=== PATIENT | male | born 1945 | race Asian ===

== ENCOUNTER 2024-07-09 14:07 | Inpatient (IN) | payer OTHER, SELFPAY ==
[2024-07-09] VITALS (8 sets, daily range): BP systolic 110–160; BP diastolic 67–85; PULSE 86–113; RESP 16–96; TEMP 36.7–38.4; O2SAT 94–97; BMI 20.9
--- NOTE | 2024-07-09 14:20 | XR_ITS ---
Examination: AP chest single view Technique one AP portable upright chest single view Exam date: July 09, 2024 1453 hours INDICATIONS: Sepsis protocol. FINDINGS: Significant pneumonia right base Mild prominence left ventricle Ectatic thoracic aorta Moderate osteopenia IMPRESSION: Significant pneumonia right base
--- NOTE | 2024-07-09 14:20 | EKG_ITS ---
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
--- NOTE | 2024-07-09 14:27 | PD.EDADULT ---
ED General RME/HPI General Chief complaint: Flu Like Symptoms Stated complaint: WEAKNESS Time Seen by Provider: 07/09/24 14:19 Arrival date/time: 07/09/24 14:07 CC: Altered mental status HPI patient presents to the ER via EMS with PD after found driving erratically through traffic. The patient states that he has had the shakes feeling cold with bodyaches. Patient states no other family members are ill. Nursing reports tachycardic and an oral temperature of 100.6. Patient is awake with loud verbal stimulation answering all questions appropriately. Patient has a history of diabetes hypertension A-fib is on blood thinners. Related Data Home Medications ?Medication ?Instructions ?Recorded ?Confirmed allopurinol 100 mg tablet 100 mg PO BID 07/09/24 07/09/24 atorvastatin 10 mg tablet 10 mg PO QDAY 07/09/24 07/09/24 empagliflozin 25 mg tablet 25 mg PO .COMPLEX 07/09/24 07/09/24 (Jardiance) glipizide 5 mg tablet 5 mg PO .COMPLEX 07/09/24 07/09/24 hydrochlorothiazide PO 07/09/24 levothyroxine 50 mcg tablet 50 mcg PO QDAY 07/09/24 07/09/24 losartan 50 mg tablet 50 mg PO QDAY 07/09/24 07/09/24 metoprolol succinate PO .Qday 07/09/24 omeprazole 20 mg capsule,delayed 20 mg PO QDAY 07/09/24 07/09/24 release tamsulosin 0.4 mg capsule 0.4 mg PO QDAY 07/09/24 07/09/24 warfarin 2.5 mg tablet 2.5 mg PO .COMPLEX 07/09/24 07/09/24 Previous Rx's ?Medication ?Instructions ?Recorded cefdinir 300 mg capsule 300 mg PO BID 3 days #6 caps 07/11/24 Allergies Allergy/AdvReac Type Severity Reaction Status Date / Time No Known Allergies Allergy Verified 07/09/24 15:47 Review of Systems Review of Systems Narrative Review of Systems: GEN: + fever, + chills, no weight loss EYES: No discharge, no visual changes, no pain HEENT: No ear pain, no congestion, no sore throat PULM: No shortness of breath, no cough, no congestion CV: No chest pain, no dyspnea on exertion, no palpitations GI: No nausea, no vomiting, no diarrhea, no pain, no constipation : No frequency, no urgency, no dysuria MUSC/SKEL: No joint pain, no back pain SKIN: No rash PSYCH: No hallucinations, no depression HEME/LYMPH: No easy bleeding or bruising tendencies NEURO: No weakness, no headache ED Exam Narrative Physical exam: [General: Thin but not emaciated in moderate discomfort but not in any acute distress Head normocephalic HEENT: Eyes pupils are PERRLA EOMs are intact mouth pink dry membranes uvula is midline swallow symmetrical. All other subsystems of HEENT are within acceptable limits Neck is supple nontender no JVD no edema Chest equal chest rise nontender to palpation Respiratory: Clear to auscultation no wheezes crackles or rubs CV: Rate rhythm is regular, tachycardic, no murmurs rubs or clicks Abdomen is flat, soft nontender no masses positive bowel sounds all 4 quadrants Back: No CVA tenderness no spinous process tenderness from cervical spine thoracic and lumbar spine Skin: Intact no petechiae rash induration ulceration or crepitus Extremities: Moving all extremity against resistance cap refill less than 2 seconds neurosensory intact Neuro: Awake alert oriented x2, person and place, Glascow coma 15 no focal deficits] Course Quality Measures none Orders Category Date Time Status Admit to Inpatient Status Routine Admission 07/09/24 17:46 Active Patient Condition Routine Admission 07/09/24 17:46 Ordered Bedside Blood Glucose ACHS Care 07/09/24 17:51 Completed Bedside COVID-19 Antigen Test NOW Care 07/09/24 17:56 Completed Bedside Influenza A&B Antigen Test NOW Care 07/09/24 14:20 Completed Windows Technical Specialist STAT Care 07/09/24 14:20 Completed Continuous Pulse Oximetry STAT Care 07/09/24 14:20 Completed EKG (ED ONLY) *Do not use* NOW Care 07/09/24 14:20 Completed In and Out Catheter X1PRN Care 07/09/24 14:20 Completed Insert IV NOW Care 07/09/24 14:20 Completed NPO STAT Care 07/09/24 14:20 Completed Notify provider NEEDED Care 07/09/24 17:46 Completed Saline [Insert IV] NOW Care 07/09/24 14:20 Completed Strict Intake and Output Routine Care 07/09/24 14:20 Ordered Diet Cardiac Diet 07/09/24 Dinner Active EKG (ED Only) Stat Exams 07/09/24 14:20 Draft XR chest 1V SEPSIS PROTOCOL Stat Exams 07/09/24 14:20 Completed B-Type Natriuretic Peptide Stat Lab 07/09/24 14:27 Completed Blood Culture (Lab) Stat Lab 07/09/24 14:27 Results CBC AM DRAW Lab 07/10/24 05:05 Completed CBC AM DRAW Lab 07/11/24 05:15 Completed CBC Stat Lab 07/09/24 14:27 Completed Comprehensive Metabolic Panel AM DRAW Lab 07/10/24 05:05 Completed Comprehensive Metabolic Panel AM DRAW Lab 07/11/24 05:15 Completed Comprehensive Metabolic Panel Stat Lab 07/09/24 14:27 Completed Glycohemoglobin w (eAG) AM DRAW Lab 07/10/24 05:05 Completed LDH (Lactate Dehydrogenase) Stat Lab 07/09/24 14:27 Completed Lactate (Lactic Acid) Stat Lab 07/09/24 14:27 Completed Lactic Acid, 3 HR Stat Lab 07/09/24 11:56 Completed Lipase Stat Lab 07/09/24 14:27 Completed Lipid Panel AM DRAW Lab 07/10/24 05:05 Completed MRSA Nasal Screen Stat Lab 07/09/24 21:30 Completed Magnesium AM DRAW Lab 07/10/24 05:05 Completed Magnesium AM DRAW Lab 07/11/24 05:15 Completed Magnesium Stat Lab 07/09/24 14:27 Completed Partial Thromboplastin Time AM DRAW Lab 07/10/24 05:05 Completed Partial Thromboplastin Time AM DRAW Lab 07/11/24 05:15 Completed Partial Thromboplastin Time Stat Lab 07/09/24 14:27 Completed Phosphorous AM DRAW Lab 07/10/24 05:05 Completed Phosphorous AM DRAW Lab 07/11/24 05:15 Completed Phosphorous Stat Lab 07/09/24 14:27 Completed Procalcitonin Stat Lab 07/09/24 14:27 Completed Prothrombin Time with INR AM DRAW Lab 07/10/24 05:05 Completed Prothrombin Time with INR AM DRAW Lab 07/11/24 05:15 Completed Prothrombin Time with INR Stat Lab 07/09/24 14:27 Completed RSV [Respiratory Syncytial Virus Ag] Stat Lab 07/09/24 21:10 Completed Sputum Culture and Gram Stain Routine Lab 07/09/24 22:15 Results Thyroid Stimulating Hormone AM DRAW Lab 07/10/24 05:05 Completed Troponin I Stat Lab 07/09/24 14:27 Completed Urinalysis Stat Lab 07/09/24 14:53 Completed Urine Culture Stat Lab 07/09/24 14:53 Completed Acetaminophen Ivpb [Ofirmev Inj] Med 07/09/24 14:32 Discontinued 1,000 mg in 100 ml IV NOW Acetaminophen Tab [Tylenol Tab] Med 07/09/24 17:51 Discontinued 650 mg PO Q6H PRN Azithromycin Inj [Zithromax Inj] 500 mg Med 07/10/24 21:00 Discontinued Sodium Chloride 0.9% 250 ml [Ns] 250 ml IV QDAY@2100 Dextrose 50% Syr [D50w Syringe Abboject] Med 07/09/24 17:51 Discontinued 25 ml IV Q15MIN PRN Dextrose 50% Syr [D50w Syringe Abboject] Med 07/09/24 17:51 Discontinued 50 ml IV Q15MIN PRN Glucagon Inj Med 07/09/24 17:51 Discontinued 1 mg IM Q15MIN PRN Heparin Inj Med 07/09/24 21:00 Discontinued 5,000 unit SC BID INSULIN LISPRO (AdmeLOG) [HumaLOG] Med 07/09/24 21:00 Discontinued See Protocol SC ACHS Ondansetron Inj [Zofran Inj] Med 07/09/24 17:51 Discontinued 4 mg IV Q6H PRN Pantoprazole [Protonix] Med 07/10/24 09:00 Discontinued 40 mg PO QDAY Ringers Lactated 500 ml [Lactated Ringers] 500 ml Med 07/09/24 19:00 Discontinued IV 75 mls/hr Sodium Chloride 0.9% 1000 ml [Ns] 1,000 ml Med 07/09/24 14:20 Discontinued IV 999 mls/hr Sodium Chloride Rt Mague 10% [NS Rt Mague 10%] Med 07/09/24 17:51 Discontinued 5 ml INH X1 ONE cefTRIAXone/D5w 1gm IV premix [Rocephin/D5w 1gm IV Med 07/10/24 18:00 Discontinued premix] 1 gm in 50 ml IV QDAY Code Status Routine Oth 07/09/24 17:46 Completed Oxygen Delivery NOW RT 07/09/24 14:20 Completed Sputum Induction PRN RT 07/09/24 18:00 Ordered Vital Signs Vital signs: Vital Signs Temperature 100.6 F H 07/09/24 14:08 Pulse Rate 106 H 07/09/24 14:08 Respiratory Rate 20 07/09/24 14:08 Blood Pressure 160/67 H 07/09/24 14:08 Pulse Oximetry (%) 95 07/09/24 14:08 Oxygen Delivery Method Room Air 07/09/24 14:08 [facility] Patient data External records reviewed:: [facility] previous records and EMS form Clinical information provided by:: patient and EMS Social determinants that could affect healthcare access:: none Patient has the following chronic illnesses:: None How is presenting disease/condition affected by chronic disease/condition?: uneffected by Evaluation data The following diagnostics were reviewed and interpreted by me:: lab results, radiology exam(s) and EKG tracing(s) Lab and/or radiology exams considered but not ordered:: EKG performed at 1432 shows a ventricular rate of 9 6 QRS of 8 7 QTc of 391 this is A-fib. CBC shows leukocytosis of 30,300 H&H of 11 and 31 respectively. Platelet count at 121. No bandemia PT 28.9 INR 2.8 PTT 53.3 CMP shows sodium 133 potassium 4.2 CO2 of 19.4 chloride is within acceptable limits BUN is 60 creatinine is 2.5 glucose at 185 Lactic acid 2.1 Pro-Eber at 33.36 Lipase at 59. BNP of 289 Chest x-ray shows a significant right base pneumonia. Influenza is negative. Interpretation Summary: While resting oxygen saturations are 90% on room air the patient is feeling more comfortable after IV Tylenol. However patient is septic, with a pneumonia. Patient also noted to have MINAL, as we have no old laboratory results and not sure if this is chronic or acute on chronic. This will need to be addressed as well. This time his warrants admission to the hospital for further medical management. Medications Medications considered but not ordered:: None Medication administrations:: Medication Administration History Discontinued Medications Acetaminophen (Acetaminophen 325 Mg Tablet) 650 mg PO Q6H PRN PRN Reason: PAIN OR FEVER > 100.4 Stop: 08/08/24 17:50 Last Admin: 07/10/24 05:26 Dose: 650 mg Documented By: AZUL Atorvastatin Calcium (Atorvastatin Calcium 10 Mg Tablet) 10 mg PO QDAY ASIA Stop: 08/09/24 08:59 Last Admin: 07/11/24 09:05 Dose: 10 mg Documented By: Admin: 07/10/24 08:35 Dose: 10 mg Documented By: OK Dextrose (Dextrose 50%-Water Inj 50 Ml Syringe) 25 ml IV Q15MIN PRN PRN Reason: BG 50-70 responsive npo pt Stop: 08/08/24 17:50 Dextrose (Dextrose 50%-Water Inj 50 Ml Syringe) 50 ml IV Q15MIN PRN PRN Reason: BG <50 OR BG <70 & pt unresponsive Stop: 08/08/24 17:50 Glucagon (Glucagon Inj 1 Mg Vial) 1 mg IM Q15MIN PRN PRN Reason: BG <70, and no IV access Heparin Sodium (Porcine) (Heparin Sod Inj 5000 Unit/Ml Vial) 5,000 unit SC BID ASIA Stop: 07/23/24 20:59 Last Admin: 07/09/24 22:03 Dose: Not Given Documented By: HECTOR Non-Admin Reason: HOLD TONIGHT PER MD Sodium Chloride (Ns) 1,000 mls @ 999 mls/hr IV .Q1H1M ONE Stop: 07/09/24 15:20 Last Admin: 07/09/24 15:00 Dose: 999 mls/hr Documented By: CARMELA Acetaminophen (Ofirmev Inj) 1,000 mg in 100 mls @ 250 mls/hr IV NOW ONE Stop: 07/09/24 14:55 Last Infusion: 07/09/24 16:47 Dose: Infused Documented By: HECTOR(2) Admin: 07/09/24 16:23 Dose: 250 mls/hr Documented By: MLXimena(2) Lactated Ringer's (Lactated Ringers) 500 mls @ 75 mls/hr IV .Q6H40M ONE Stop: 07/10/24 01:39 Last Admin: 07/09/24 20:57 Dose: 75 mls/hr Documented By: LB Comments: 500 ml bag not available Ceftriaxone Sodium/Dextrose (Rocephin/D5w 1gm Iv Premix) 1 gm in 50 mls @ 100 mls/hr IV QDAY ASIA Stop: 07/17/24 17:59 Azithromycin 500 mg/ Sodium (Chloride) 250 mls @ 250 mls/hr IV QDAY@2100 ASIA Stop: 07/16/24 17:49 Last Admin: 07/10/24 20:34 Dose: 250 mls/hr Documented By: LORENZO Azithromycin 500 mg/ Sodium (Chloride) 250 mls @ 250 mls/hr IV X1 ONE Stop: 07/09/24 19:14 Last Infusion: 07/09/24 20:57 Dose: Infused Documented By: Admin: 07/09/24 19:57 Dose: 250 mls/hr Documented By: AYE Ceftriaxone Sodium/Dextrose (Rocephin/D5w 1gm Iv Premix) 1 gm in 50 mls @ 100 mls/hr IV QDAY ASIA Stop: 07/16/24 18:14 Last Admin: 07/11/24 09:08 Dose: 100 mls/hr Documented By: Infusion: 07/10/24 09:05 Dose: Infused Documented By: Admin: 07/10/24 08:35 Dose: 100 mls/hr Documented By: Infusion: 07/09/24 22:46 Dose: Infused Documented By: Admin: 07/09/24 22:08 Dose: 100 mls/hr Documented By: HECTOR Insulin Human Lispro (Insulin Lispro (Admelog) 1 Unit/0.01 Ml Unit) 0 unit SC [facility]; Protocol Stop: 08/08/24 20:59 Last Admin: 07/10/24 07:20 Dose: Not Given Documented By: OK Non-Admin Reason: Per Protocol Admin: 07/09/24 21:14 Dose: Not Given Documented By: MAYLIN Non-Admin Reason: Per Protocol Insulin Human Lispro (Insulin Lispro (Admelog) 1 Unit/0.01 Ml Unit) 0 unit SC AC [facility]; Protocol Stop: 08/09/24 07:29 Last Admin: 07/11/24 11:28 Dose: 1 unit Documented By: IVANIA Co-signed By: ISMAEL Admin: 07/11/24 07:21 Dose: Not Given Documented By: GD Non-Admin Reason: Per Protocol Comments: Blood sugar 82. Admin: 07/10/24 16:53 Dose: 1 unit Documented By: OK Co-signed By: ALFRED Admin: 07/10/24 11:25 Dose: Not Given Documented By: OK Non-Admin Reason: Per Protocol Admin: 07/10/24 07:35 Dose: Not Given Documented By: OK Non-Admin Reason: Per Protocol Levothyroxine Sodium (Levothyroxine Sodium 25 Mcg Tablet) 50 mcg PO ACBR [facility] Stop: 08/09/24 08:59 Last Admin: 07/11/24 05:16 Dose: 50 mcg Documented By: Admin: 07/10/24 08:34 Dose: 50 mcg Documented By: OK Metoprolol Succinate (Metoprolol Succinate Xl 25 Mg Tabcr) 25 mg PO QDAY [facility] Stop: 08/09/24 15:44 Last Admin: 07/11/24 09:05 Dose: 25 mg Documented By: Admin: 07/10/24 15:57 Dose: 25 mg Documented By: OK Ondansetron HCl (Ondansetron Inj 2 Mg/Ml Inj 2 Ml) 4 mg IV Q6H PRN; Protocol PRN Reason: NAUSEA OR VOMITING Stop: 08/08/24 17:50 Pantoprazole Sodium (Pantoprazole 40 Mg Tablet) 40 mg PO QDAY [facility] Stop: 08/09/24 08:59 Last Admin: 07/11/24 09:05 Dose: 40 mg Documented By: Admin: 07/10/24 08:34 Dose: 40 mg Documented By: OK Potassium Chloride (Potassium Chloride 20 Meq Tabcr) 40 meq PO X1 ONE Stop: 07/11/24 07:53 Last Admin: 07/11/24 11:21 Dose: 40 meq Documented By: BM Sodium Chloride (Sodium Chloride Rt 10% 15 Ml Nebu) 5 ml INH X1 ONE Stop: 07/09/24 17:52 Tamsulosin HCl (Tamsulosin Hcl 0.4 Mg Capsule) 0.4 mg PO QDAY [facility] Stop: 08/09/24 13:14 Last Admin: 07/11/24 09:05 Dose: 0.4 mg Documented By: Admin: 07/10/24 14:37 Dose: 0.4 mg Documented By: OK None Consultations Consultation(s) initiated? (list below): No Diagnosis Differential Diagnosis ED Complaint MDM: Pneumonia sepsis MINAL Most likely diagnosis given after review of the tests above:: Pneumonia sepsis MINAL Admission Indicated Admission indicated?: indicated Explain why admission is indicated or not indicated:: Requires further medical management Admission Request Was there a request for admission?: No Disposition Plan Disposition Plan: Admit Medical Decision Making Differential Diagnosis Differential Diagnosis: Pneumonia sepsis MINAL Lab Data 07/11/24 05:15 07/11/24 05:15 Labs: Lab Results 07/09/24 07/09/24 07/09/24 Range/Units 11:56 14:27 14:53 WBC 30.3 H (3.8-10.6) Thou/mm3 RBC 3.30 L (4.50-5.90) Miln/mm3 Hgb 11.4 L (13.5-16.0) g/dL Hct 31.5 L (41.0-53.0) % MCV 96 (80-100) fL MCH 34.5 (25.0-35.0) pg MCHC 36.2 (31.0-37.0) g/dl RDW Std Deviation 51.4 H (35.1-43.9) fL Plt Count 121 L (140-440) Thou/mm3 Neut % (Auto) 93 H (37-80) % Lymph % (Auto) 1 L (10-50) % Dukes % (Auto) 2 (0-12) % Eos % (Auto) 0 (0-10) % Baso % (Auto) 0 (0-2.5) % Neut # (Auto) 28.2 H (1.8-7.7) Thou/mm3 Lymph # (Auto) 0.4 L (1.0-4.8) Thou/mm3 Dukes # (Auto) 0.5 (0.0-0.8) Thou/mm3 Eos # (Auto) 0.0 (0.0-0.5) Thou/mm3 Baso # (Auto) 0.0 (0.0-0.2) Thou/mm3 Immature Gran # (Auto) 1.11 H (0.00-0.00) Thou/mm3 Absolute Nucleated RBC 0.00 (0.00-0.00) Thou/mm3 Immature Gran % 4 H (0-0) % Nucleated RBC % 0 (0) /100 WBC PT 28.9 H (9.0-12.2) Seconds INR 2.8 H (0.9-1.3) APTT 53.5 H (22.0-36.0) Seconds Sodium 131 L (136-145) mMol/L Potassium 4.2 (3.4-5.1) mMol/L Chloride 101 (98-107) mMol/L Carbon Dioxide 19.4 L (20.0-31.0) mMol/L Anion Gap 11 (7-16) BUN 60 H (9-23) mg/dL Creatinine 2.5 H (0.6-1.3) mg/dL Estim Creat Clear Calc 19.1 L (>60) mL/min eGFR 26 L (60 - ) See Note BUN/Creatinine Ratio 24 H (12-20) Ratio Glucose 185 H (74-106) mg/dL Calculated Osmolality 284 (275-295) Lactic Acid 0.9 2.1 H (0.4-2.0) mMol/L Calcium 8.7 (8.3-10.6) mg/dL Corrected Calcium 8.7 (8.5-10.1) mg/dL Phosphorus 3.2 (2.4-5.1) mg/dL Magnesium 2.3 (1.6-2.6) mg/dL Total Bilirubin 1.9 H (0.3-1.2) mg/dL AST 39 H (0-34) U/L ALT 16 (10-49) U/L Alkaline Phosphatase 81 (46-116) U/L Lactate Dehydrogenase 257 H (120-246) U/L Troponin I 0.037 (0.0-0.045) ng/mL B-Natriuretic Peptide 289 H (0-100) pg/mL Total Protein 7.3 (5.7-8.2) gm/dL Albumin 4.0 (3.4-4.8) gm/dL Globulin 3.3 (2.3-3.5) gm/dL Albumin/Globulin Ratio 1.2 (1.2-2.2) Lipase 59 H (12-53) U/L Procalcitonin 33.36 H (0.0-0.49) ng/ml Ur Collection Type Clean Catch Urine Color Lt-Yellow (Lt Yel-Yel) Urine Clarity Clear (Clear/Hazy) Urine pH 6.5 (5.0-7.0) Ur Specific [place] 1.014 (1.001-1.035) Urine Protein 1+ A (Neg - Trace) Urine Glucose (UA) 4+ A (Negative) Urine Ketones Negative (Negative) Urine Blood 1+ A (Negative) Urine Nitrite Negative (Negative) Urine Bilirubin Negative (Negative) Urine Urobilinogen (Auto) Negative (0.0-1.0) mg/dL Ur Leukocyte Esterase Negative (Negative) Urine RBC 6 H (0-3) /hpf Urine WBC < 1 (0-5) /hpf Ur Squamous Epith Cells 0 (0-5) /hpf Urine Bacteria None (None) Discharge Plan Plan Patient Disposition: Admit Acute Care w/in Hospital Patient condition on transfer: Stable Problem List Clinical Impression: Sepsis, Pneumonia, MINAL (acute kidney injury) PA/PUBLIC HEALTH ENGINEER Supervising Physician PA/PUBLIC HEALTH ENGINEER Supervising Physician: Collin Saenz ENP
[2024-07-09 14:37] LABS: Lactate (Lactic Acid) 2.1 mMol/L (0.4-2.0)
[2024-07-09 14:39] LABS: Basophils % (Auto) 0 % (0-2.5); Eosinophils % (Auto) 0 % (0-10); Hematocrit 31.5 % (41.0-53.0); Hemoglobin 11.4 g/dL (13.5-16.0); Immature Granulocytes % (Auto) 4 % (0-0); Immature Granulocytes Auto 1.11 Thou/mm3 (0.00-0.00); Lymphocytes # (Auto) 0.4 Thou/mm3 (1.0-4.8); Lymphocytes % (Auto) 1 % (10-50); Mean Corpuscular HGB Conc 36.2 g/dl (31.0-37.0); Mean Corpuscular Hemoglobin 34.5 pg (25.0-35.0); Mean Corpuscular Volume 96 fL (80-100); Monocytes # (Auto) 0.5 Thou/mm3 (0.0-0.8); Monocytes % (Auto) 2 % (0-12); Neutrophils # (Auto) 28.2 Thou/mm3 (1.8-7.7); Neutrophils % (Auto) 93 % (37-80); Nucleated Red Blood Cell % 0 /100 WBC (0); Platelet Count 121 Thou/mm3 (140-440); RDW Standard Deviation 51.4 fL (35.1-43.9); White Blood Count 30.3 Thou/mm3 (3.8-10.6)
[2024-07-09] MEDS: SODIUM CHLORIDE 0.9% 1000 ML 1,000 ML 999 ML IV (15:00)
[2024-07-09 15:03] LABS: B-Type Natriuretic Peptide 289 pg/mL (0-100)
[2024-07-09 15:07] LABS: INR 2.8 (0.9-1.3); Partial Thromboplastin Time 53.5 Seconds (22.0-36.0); Prothrombin Time 28.9 Seconds (9.0-12.2)
[2024-07-09 15:13] LABS: Alanine Aminotransferase 16 U/L (10-49); Albumin/Globulin Ratio 1.2 (1.2-2.2); Alkaline Phosphatase 81 U/L (46-116); Anion Gap 11 (7-16); Aspartate Amino Transferase 39 U/L (0-34); BUN/Creatinine Ratio 24 Ratio (12-20); Bilirubin,Total 1.9 mg/dL (0.3-1.2); Blood Urea Nitrogen 60 mg/dL (9-23); Calcium 8.7 mg/dL (8.3-10.6); Calcium (Corrected) 8.7 mg/dL (8.5-10.1); Carbon Dioxide 19.4 mMol/L (20.0-31.0); Chloride 101 mMol/L (98-107); Creatinine (Component) 2.5 mg/dL (0.6-1.3); Estimated Creatinine Clearance 19.1 mL/min (>60); Globulin 3.3 gm/dL (2.3-3.5); Glucose 185 mg/dL (74-106); LDH (Lactate Dehydrogenase) 257 U/L (120-246); Lipase 59 U/L (12-53); Magnesium 2.3 mg/dL (1.6-2.6); Osmolality,Calculated 284 (275-295); Phosphorous 3.2 mg/dL (2.4-5.1); Potassium 4.2 mMol/L (3.4-5.1); Procalcitonin 33.36 ng/ml (0.0-0.49); Sodium 131 mMol/L (136-145); Total Protein 7.3 gm/dL (5.7-8.2); Troponin I 0.037 ng/mL (0.0-0.045); eGFR 26 See Note
[2024-07-09 15:26] LABS: Collection Type, Urine Clean Catch; Squamous Epithelial Cell,Urine 0 /hpf (0-5)
[2024-07-09 15:55] LABS: Bilirubin,Urine Negative (Negative); Blood,Urine 1+ (Negative); Clarity,Urine Clear (Clear/Hazy); Color,Urine Lt-Yellow (Lt Yel-Yel); Glucose, Urine 4+ (Negative); Ketones,Urine Negative (Negative); Leukocyte Esterase,Urine Negative (Negative); Nitrite,Urine Negative (Negative); PH,Urine 6.5 (5.0-7.0); Protein,Urine 1+ (Neg - Trace); RBC,Urine 6 /hpf (0-3); Specific Gravity,Urine 1.014 (1.001-1.035); Urobilinogen,Urine Negative mg/dL (0.0-1.0); WBC,Urine < 1 /hpf (0-5)
[2024-07-09] MEDS: ACETAMINOPHEN IVPB 1,000 MG/100 ML VIAL 250 MG IV (16:23)
--- NOTE | 2024-07-09 17:30 | ESHP_ITS ---
Addendum History & Physical Addendum Date of report being addended: 07/09/24 Narrative: Attending's attestation: I reviewed labs, imaging, EKG, home medications and prior available records. Face to face evaluation was performed by me. I have personally examined the patient and discussed assessment and plan with the IM team. I reviewed the resident note and agree with the plan with exceptions as below. 79-year-old male with unknown past medical history who presented with fevers, ch ills, and bodyaches. He was found to have sepsis picture likely secondary to left lower lobe pneumonia. Sepsis secondary to left lower lobe pneumonia Acute febrile illness Thrombocytopenia MINAL versus CKD stage IV Hyperglycemia, possible history of diabetes mellitus Atrial fibrillation with controlled ventricular rhythm Elevated INR Start IV ceftriaxone/azithromycin Follow-up blood cultures Tylenol as needed for fevers Trend WBC Give IV fluids. Monitor kidney function. Avoid nephrotoxins. Renally dosed medications Monitor platelet level and monitor for bleeding Obtain baseline echocardiogram
[2024-07-09 17:36] LABS: Reflex Lactate? Y
[2024-07-09 18:01] LABS: Lactic Acid, 3 HR 0.9 mMol/L (0.4-2.0)
--- NOTE | 2024-07-09 18:02 | PD.RESHP ---
Documentation for date of: 07/09/24 HPI History of Present Illness History of present illness: Florentino Can is a 79-year-old male with a past medical history of type 2 diabetes mellitus, hypertension, and atrial fibrillation (patient states he is on warfarin) who presents to ED on 07/09 after being brought in by [place] [employer] for erratic driving, and son present at bedside to help provide additional history. Son states that patient went out to buy something from convenience store and on the way back home onlookers called police for patient's driving. Police then called EMS and son states that patient's blood pressure was high. For the past 2 to 3 days patient endorses having a cough with associated fever, chills, and sweats but no sore throat or shortness of breath. Also denies chest discomfort, dysuria, change in bowel habits, or abdominal pain. No sick contacts but patient did drive from [place] to visit his son. In ED, BP 160/67, HR 106, temp 100.6 ?F, O2 95% on RA. WBC 30, Hgb 11.4, PLT 121. INR 2.8, PTT 53. Na 131, HCO3 19, BUN 60, Cr 2.5, glucose 185, lactate 2.1, T. bili 1.9, AST 39, ALT 16, BNP 289, trop negative, Pro-Eber 33. UA 4+ glucose, 1+ protein, 1+ blood, 6 RBC. CXR showed right base pneumonia. EKG showed a-fib. Blood and urine cultures sent. Given 1 L NS bolus and tylenol. Admitted for management of community acquired pneumonia. PMHx: T2DM, HTN, a-fib reportedly on warfarin Medications: patient does not know all medications/dosages, son to bring medication list from home as soon as possible SHx: denies current tobacco use, alcohol consumption, or illicit drug use; visiting son from [place] PSHx: none Review of Systems Review of Systems Systems Reviewed: All systems reviewed, normal except as documented Exam Vital Signs Temp Pulse Resp BP Pulse Ox O2 Del Method 100.0 F 113 H 27 H 145/85 H 95 Room Air 07/09/24 16:20 07/09/24 16:20 07/09/24 16:20 07/09/24 16:20 07/09/24 16:20 07/09/24 16:20 Narrative Exam General: AOx3, no acute distress, able to speak full sentences HEENT: NC/AT, mucous membranes moist, bilateral sclera anicteric Cardiovascular: irregular rate and rhythm, S1/S2 present, no murmurs appreciated Pulmonary: clear to auscultation bilaterally, no rales/rhonchi/wheezes Abdominal: soft, non-tender, non-distended, no rebound/guarding, normal bowel sounds present Musculoskeletal: normal ROM, no peripheral edema Skin: warm and dry, intact, no rashes Neuro: CN II-XII intact, no focal deficits Results: Labs 07/11/24 05:15 07/11/24 05:15 Labs: Short CBC 07/09/24 Range/Units 14:27 WBC 30.3 H (3.8-10.6) Thou/mm3 Hgb 11.4 L (13.5-16.0) g/dL Hct 31.5 L (41.0-53.0) % Plt Count 121 L (140-440) Thou/mm3 BMP 07/09/24 14:27 Sodium 131 L Potassium 4.2 Chloride 101 Carbon Dioxide 19.4 L BUN 60 H Creatinine 2.5 H Glucose 185 H Calcium 8.7 Cardiac Enzymes 07/09/24 Range/Units 14:27 Troponin I 0.037 (0.0-0.045) ng/mL Liver Function 07/09/24 Range/Units 14:27 Total Bilirubin 1.9 H (0.3-1.2) mg/dL AST 39 H (0-34) U/L ALT 16 (10-49) U/L Alkaline Phosphatase 81 (46-116) U/L Albumin 4.0 (3.4-4.8) gm/dL Urine 07/09/24 Range/Units 14:53 Urine Color Lt-Yellow (Lt Yel-Yel) Urine Clarity Clear (Clear/Hazy) Urine pH 6.5 (5.0-7.0) Ur Specific [place] 1.014 (1.001-1.035) Urine Protein 1+ A (Neg - Trace) Urine Glucose (UA) 4+ A (Negative) Quality Measures Quality Measures VTE prophylaxis Advance care planning discussed with:: patient and child Medications Home Medications and Allergies Home Medications ?Medication ?Instructions ?Recorded ?Confirmed ?Type allopurinol 100 mg tablet 100 mg PO BID 07/09/24 07/09/24 History atorvastatin 10 mg tablet 10 mg PO QDAY 07/09/24 07/09/24 History empagliflozin 25 mg tablet 25 mg PO .COMPLEX 07/09/24 07/09/24 History (Jardiance) glipizide 5 mg tablet 5 mg PO .COMPLEX 07/09/24 07/09/24 History hydrochlorothiazide PO 07/09/24 History levothyroxine 50 mcg tablet 50 mcg PO QDAY 07/09/24 07/09/24 History losartan 50 mg tablet 50 mg PO QDAY 07/09/24 07/09/24 History metoprolol succinate PO .Qday 07/09/24 History omeprazole 20 mg capsule,delayed 20 mg PO QDAY 07/09/24 07/09/24 History release tamsulosin 0.4 mg capsule 0.4 mg PO QDAY 07/09/24 07/09/24 History warfarin 2.5 mg tablet 2.5 mg PO .COMPLEX 07/09/24 07/09/24 History Allergies Allergy/AdvReac Type Severity Reaction Status Date / Time No Known Allergies Allergy Verified 07/09/24 15:47 Visit Medications Acetaminophen (Acetaminophen 325 Mg Tablet) 650 mg PO Q6H PRN PRN Reason: PAIN OR FEVER > 100.4 Stop: 08/08/24 17:50 Dextrose (Dextrose 50%-Water Inj 50 Ml Syringe) 25 ml IV Q15MIN PRN PRN Reason: BG 50-70 responsive npo pt Stop: 08/08/24 17:50 Dextrose (Dextrose 50%-Water Inj 50 Ml Syringe) 50 ml IV Q15MIN PRN PRN Reason: BG <50 OR BG <70 & pt unresponsive Stop: 08/08/24 17:50 Glucagon (Glucagon Inj 1 Mg Vial) 1 mg IM Q15MIN PRN PRN Reason: BG <70, and no IV access Heparin Sodium (Porcine) (Heparin Sod Inj 5000 Unit/Ml Vial) 5,000 unit SC BID ASIA Stop: 07/23/24 20:59 Lactated Ringer's (Lactated Ringers) 500 mls @ 75 mls/hr IV .Q6H40M ONE Stop: 07/10/24 01:39 Ceftriaxone Sodium/Dextrose (Rocephin/D5w 1gm Iv Premix) 50 mls @ 100 mls/hr IV QDAY ASIA Stop: 07/17/24 17:59 Azithromycin 500 mg/ Sodium (Chloride) 250 mls @ 250 mls/hr IV QDAY [facility] Stop: 07/16/24 17:57 Insulin Human Lispro (Insulin Lispro (Admelog) 1 Unit/0.01 Ml Unit) 0 unit SC ACHS [facility]; Protocol Stop: 08/08/24 20:59 Ondansetron HCl (Ondansetron Inj 2 Mg/Ml Inj 2 Ml) 4 mg IV Q6H PRN; Protocol PRN Reason: NAUSEA OR VOMITING Stop: 08/08/24 17:50 Pantoprazole Sodium (Pantoprazole 40 Mg Tablet) 40 mg PO QDAY [facility] Stop: 08/09/24 08:59 Discontinued Medications Sodium Chloride (Ns) 1,000 mls @ 999 mls/hr IV .Q1H1M ONE Stop: 07/09/24 15:20 Last Admin: 07/09/24 15:00 Dose: 999 mls/hr Acetaminophen (Ofirmev Inj) 1,000 mg in 100 mls @ 250 mls/hr IV NOW ONE Stop: 07/09/24 14:55 Last Infusion: 07/09/24 16:47 Dose: Infused Ceftriaxone Sodium/Dextrose (Rocephin/D5w 1gm Iv Premix) 1 gm in 50 mls @ 100 mls/hr IV X1 ONE Stop: 07/09/24 17:30 Sodium Chloride (Sodium Chloride Rt 10% 15 Ml Nebu) 5 ml INH X1 ONE Stop: 07/09/24 17:52 Assessment & Plan Plan Florentino Can is a 79-year-old male with a past medical history of type 2 diabetes mellitus, hypertension, and atrial fibrillation (patient states he is on warfarin) who presents to ED on 07/09 after being brought in by [facility] for erratic driving, and son present at bedside to help provide additional history. Son states that patient went out to buy something from convenience store and on the way back home onlookers called police for patient's driving. Police then called EMS and son states that patient's blood pressure was high. For the past 2 to 3 days patient endorses having a cough with associated fever, chills, and sweats but no sore throat or shortness of breath. Also denies chest discomfort, dysuria, change in bowel habits, or abdominal pain. No sick contacts but patient did drive from [place] to visit his son. Admitted for management of community acquired pneumonia. #Community-acquired pneumonia #Elevated lactate Presents with cough, fever, chills, sweats. No shortness of breath, sore throat, sick contacts. WBC 30, lactate 2.1, Pro-Eber 33. CXR showed right base pneumonia. ? Azithromycin and ceftriaxone (07/09-) ? Blood culture 07/09 ? Sputum culture ordered ? 500 mL LR at 75 cc/hr #Acute versus chronic kidney injury #Mild hyponatremia Cr 2.5, no previous records so cannot determine if MINAL versus CKD ? IVF as above ? Avoid nephrotoxic agents, renally dose medications #Hyperbilirubinemia #Transaminitis Denies abdominal pain and also denies alcohol consumption. ? Continue to monitor #Hypertension #Atrial fibrillation ? Pending med rec, son to bring list of medications ZECHARIAH ? Follow-up coag panel as patient reportedly on warfarin #Type 2 diabetes mellitus ? Follow-up A1c ? SSI ? Hypoglycemia protocol Hospital management: Disposition: Management of community-acquired pneumonia, on IV antibiotics, pending cultures Fluids: 500 mL LR Diet: Cardiac Lines: PIV DVT prophylaxis: Heparin SC BID GI prophylaxis: Pantoprazole p.o. daily Santiago: Not indicated CODE STATUS: full code ----- Plan discussed with attending physician Dr. Juan Pablo Vann MD PGY-1 Internal Medicine Attending Provider Attestation/Addendum I reviewed labs, imaging, EKG, home medications and prior available records. Face to face evaluation was performed by me. I have personally examined the patient and discussed assessment and plan with the IM team. I reviewed the resident note and agree with the plan with exceptions as below. 79-year-old male with unknown past medical history who presented with fevers, chills, and bodyaches. He was found to have sepsis picture likely secondary to left lower lobe pneumonia. Sepsis secondary to left lower lobe pneumonia Acute febrile illness Thrombocytopenia MINAL versus CKD stage IV Hyperglycemia, possible history of diabetes mellitus Atrial fibrillation with controlled ventricular rhythm Elevated INR Start IV ceftriaxone/azithromycin Follow-up blood cultures Tylenol as needed for fevers Trend WBC Give IV fluids. Monitor kidney function. Avoid nephrotoxins. Renally dosed medications Monitor platelet level and monitor for bleeding Obtain baseline echocardiogram
[2024-07-09] MEDS: AZITHROMYCIN INJ 500 MG in SODIUM CHLORIDE 0.9% 250 ML 250 ML 250 MG IV (19:57)
[2024-07-09] MEDS: RINGERS LACTATED 500 ML 500 ML 75 ML IV (20:57)
[2024-07-09] MEDS: cefTRIAXone/D5w 1gm IV premix 1 GM/50 ML BAG IV (22:08)
--- NOTE | 2024-07-09 22:43 | PC.RT ---
SPUTUM COLLECTED AND TAKEN TO LAB.
[2024-07-10] VITALS (10 sets, daily range): BP systolic 117–161; BP diastolic 58–85; PULSE 94–112; RESP 14–97; TEMP 36.3–38.1; O2SAT 93–98; BMI 22.1
[2024-07-10 00:24] LABS: Respiratory Syncytial Virus Ag Negative (Negative)
[2024-07-10] MEDS: ACETAMINOPHEN 325 MG TABLET 650 MG PO (05:26)
[2024-07-10 05:49] LABS: Basophils % (Auto) 0 % (0-2.5); Eosinophils % (Auto) 0 % (0-10); Hematocrit 31.2 % (41.0-53.0); Immature Granulocytes % (Auto) 2 % (0-0); Immature Granulocytes Auto 0.51 Thou/mm3 (0.00-0.00); Lymphocytes # (Auto) 1.1 Thou/mm3 (1.0-4.8); Lymphocytes % (Auto) 4 % (10-50); Mean Corpuscular HGB Conc 35.3 g/dl (31.0-37.0); Mean Corpuscular Hemoglobin 34.6 pg (25.0-35.0); Mean Corpuscular Volume 98 fL (80-100); Monocytes # (Auto) 0.7 Thou/mm3 (0.0-0.8); Monocytes % (Auto) 3 % (0-12); Neutrophils # (Auto) 23.7 Thou/mm3 (1.8-7.7); Neutrophils % (Auto) 91 % (37-80); Nucleated Red Blood Cell % 0 /100 WBC (0); Platelet Count 102 Thou/mm3 (140-440); Red Blood Count 3.18 Miln/mm3 (4.50-5.90)
[2024-07-10 06:21] LABS: INR 3.2 (0.9-1.3); Partial Thromboplastin Time 60.2 Seconds (22.0-36.0)
[2024-07-10 06:30] LABS: Prothrombin Time 31.8 Seconds (9.0-12.2)
[2024-07-10 06:35] LABS: Glucose Estimated Average 169 mg/dL (80-131); Hemoglobin A1C 7.5 % Hgb (4.8-6.0)
[2024-07-10 06:37] LABS: Alanine Aminotransferase 12 U/L (10-49); Albumin, Serum 3.8 gm/dL (3.4-4.8); Albumin/Globulin Ratio 1.3 (1.2-2.2); Alkaline Phosphatase 81 U/L (46-116); Anion Gap 10 (7-16); Aspartate Amino Transferase 29 U/L (0-34); BUN/Creatinine Ratio 24 Ratio (12-20); Bilirubin,Total 1.4 mg/dL (0.3-1.2); Blood Urea Nitrogen 52 mg/dL (9-23); Calcium 8.7 mg/dL (8.3-10.6); Calcium (Corrected) 8.9 mg/dL (8.5-10.1); Carbon Dioxide 19.6 mMol/L (20.0-31.0); Cardiac Risk Estimate 2.2 RATIO (4.0-6.7); Chloride 108 mMol/L (98-107); Cholesterol 109 mg/dL (132-200); Creatinine (Component) 2.2 mg/dL (0.6-1.3); Glucose 133 mg/dL (74-106); HDL Cholesterol 50 mg/dL (40-60); LDL Cholesterol,Calculated 41 mg/dL (0-130); Magnesium 2.3 mg/dL (1.6-2.6); Osmolality,Calculated 291 (275-295); Phosphorous 2.9 mg/dL (2.4-5.1); Potassium 3.9 mMol/L (3.4-5.1); Sodium 138 mMol/L (136-145); Total Protein 6.8 gm/dL (5.7-8.2); Triglycerides 92 mg/dL (30-150); eGFR 30 See Note
[2024-07-10] MEDS: LEVOTHYROXINE SODIUM 25 MCG TABLET 50 MCG PO (08:34)
[2024-07-10] MEDS: PANTOPRAZOLE 40 MG TABLET PO (08:34)
[2024-07-10] MEDS: ATORVASTATIN CALCIUM 10 MG TABLET PO (08:35)
[2024-07-10] MEDS: cefTRIAXone/D5w 1gm IV premix 1 GM/50 ML BAG IV (08:35)
--- NOTE | 2024-07-10 09:29 | PD.RESPRO ---
Documentation for date of: 07/10/24 Subjective Subjective Interval history: Florentino Can is a 79-year-old male with a past medical history of type 2 diabetes mellitus, hypertension, hypothyroidism, BPH, gout, and atrial fibrillation (patient states he is on warfarin) who presents to ED on 07/09 after being brought in by [facility] for erratic driving, and son present at bedside to help provide additional history. Son states that patient went out to buy something from convenience store and on the way back home onlookers called police for patient's driving. Police then called EMS and son states that patient's blood pressure was high. For the past 2 to 3 days patient endorses having a cough with associated fever, chills, and sweats but no sore throat or shortness of breath. Also denies chest discomfort, dysuria, change in bowel habits, or abdominal pain. No sick contacts but patient did drive from [place] to visit his son. Admitted for management of community acquired pneumonia. 07/10: No acute overnight events noted. Seen and examined at bedside. Continues to endorse cough and chills but no fevers overnight. Denies shortness of breath, sore throat, chest discomfort. Denies any valvular replacement procedures in past and states understanding of warfarin dosing as she checks INR himself. Exam Vital Signs Temp Pulse Resp BP Pulse Ox O2 Del Method 99.0 F 99 22 H 117/58 L 95 Room Air 07/10/24 08:00 07/10/24 08:00 07/10/24 08:00 07/10/24 08:00 07/10/24 08:00 07/10/24 08:00 Narrative Exam General: AOx3, no acute distress, able to speak full sentences HEENT: NC/AT, mucous membranes moist, bilateral sclera anicteric Cardiovascular: irregular rate and rhythm, S1/S2 present, no murmurs appreciated Pulmonary: clear to auscultation bilaterally, no rales/rhonchi/wheezes Abdominal: soft, non-tender, non-distended, no rebound/guarding, normal bowel sounds present Musculoskeletal: normal ROM, no peripheral edema Skin: warm and dry, intact, no rashes Neuro: CN II-XII intact, no focal deficits Objective Labs 07/11/24 05:15 07/11/24 05:15 Labs: Laboratory Results - last 24 hr 07/09/24 07/09/24 07/09/24 11:56 14:27 14:53 WBC 30.3 H RBC 3.30 L Hgb 11.4 L Hct 31.5 L MCV 96 MCH 34.5 MCHC 36.2 RDW Std Deviation 51.4 H Plt Count 121 L Neut % (Auto) 93 H Lymph % (Auto) 1 L [place] % (Auto) 2 Eos % (Auto) 0 Baso % (Auto) 0 Neut # (Auto) 28.2 H Lymph # (Auto) 0.4 L [place] # (Auto) 0.5 Eos # (Auto) 0.0 Baso # (Auto) 0.0 Immature Gran # (Auto) 1.11 H Absolute Nucleated RBC 0.00 Immature Gran % 4 H Nucleated RBC % 0 PT 28.9 H INR 2.8 H APTT 53.5 H Sodium 131 L Potassium 4.2 Chloride 101 Carbon Dioxide 19.4 L Anion Gap 11 BUN 60 H Creatinine 2.5 H Estim Creat Clear Calc 19.1 L eGFR 26 L BUN/Creatinine Ratio 24 H Glucose [address] Glu mg/dL Hemoglobin A1c Calculated Osmolality 284 Lactic Acid 0.9 2.1 H Calcium 8.7 Corrected Calcium 8.7 Phosphorus 3.2 Magnesium 2.3 Total Bilirubin 1.9 H AST 39 H ALT 16 Alkaline Phosphatase 81 Lactate Dehydrogenase 257 H Troponin I 0.037 B-Natriuretic Peptide 289 H Total Protein 7.3 Albumin 4.0 Globulin 3.3 Albumin/Globulin Ratio 1.2 Triglycerides Cholesterol LDL Cholesterol, Calc HDL Cholesterol Cholesterol/HDL Ratio Lipase 59 H Procalcitonin 33.36 H TSH Ur Collection Type Clean Catch Urine Color Lt-Yellow Urine Clarity Clear Urine pH 6.5 Ur Specific [place] 1.014 Urine Protein 1+ A Urine Glucose (UA) 4+ A Urine Ketones Negative Urine Blood 1+ A Urine Nitrite Negative Urine Bilirubin Negative Urine Urobilinogen (Auto) Negative Ur Leukocyte Esterase Negative Urine RBC 6 H Urine WBC < 1 Ur Squamous Epith Cells 0 Urine Bacteria None RSV Rapid 07/09/24 07/10/24 21:10 05:05 WBC 26.0 H RBC 3.18 L Hgb 11.0 L Hct 31.2 L MCV 98 MCH 34.6 MCHC 35.3 RDW Std Deviation 53.0 H Plt Count 102 L Neut % (Auto) 91 H Lymph % (Auto) 4 L [place] % (Auto) 3 Eos % (Auto) 0 Baso % (Auto) 0 Neut # (Auto) 23.7 H Lymph # (Auto) 1.1 [place] # (Auto) 0.7 Eos # (Auto) 0.0 Baso # (Auto) 0.0 Immature Gran # (Auto) 0.51 H Absolute Nucleated RBC 0.00 Immature Gran % 2 H Nucleated RBC % 0 PT 31.8 H* INR 3.2 H APTT 60.2 H Sodium 138 Potassium 3.9 Chloride 108 H Carbon Dioxide 19.6 L Anion Gap 10 BUN 52 H Creatinine 2.2 H Estim Creat Clear Calc 23.0 L eGFR 30 L BUN/Creatinine Ratio 24 H Glucose [address] Glu mg/dL 169 H Hemoglobin A1c 7.5 H Calculated Osmolality 291 Lactic Acid Calcium 8.7 Corrected Calcium 8.9 Phosphorus 2.9 Magnesium 2.3 Total Bilirubin 1.4 H D AST 29 ALT 12 Alkaline Phosphatase 81 Lactate Dehydrogenase Troponin I B-Natriuretic Peptide Total Protein 6.8 Albumin 3.8 Globulin 3.0 Albumin/Globulin Ratio 1.3 Triglycerides 92 Cholesterol 109 L LDL Cholesterol, Calc 41 HDL Cholesterol 50 Cholesterol/HDL Ratio 2.2 L Lipase Procalcitonin TSH 2.00 Ur Collection Type Urine Color Urine Clarity Urine pH Ur Specific [place] Urine Protein Urine Glucose (UA) Urine Ketones Urine Blood Urine Nitrite Urine Bilirubin Urine Urobilinogen (Auto) Ur Leukocyte Esterase Urine RBC Urine WBC Ur Squamous Epith Cells Urine Bacteria RSV Rapid Negative Quality Measures Quality Measures VTE prophylaxis Advance care planning discussed with:: patient Assessment & Plan Assessment Current Active Medications: Generic Name Dose Route Start Last Admin Trade Name Freq PRN Reason Stop Dose Admin Acetaminophen 650 mg 07/09/24 17:51 07/10/24 05:26 Acetaminophen 325 Mg Tablet PO 08/08/24 17:50 650 mg Q6H PRN Administration PAIN OR FEVER > 100.4 Atorvastatin Calcium 10 mg 07/10/24 09:00 07/10/24 08:35 Atorvastatin Calcium 10 Mg Tablet PO 08/09/24 08:59 10 mg QDAY ASIA Administration Dextrose 25 ml 07/09/24 17:51 Dextrose 50%-Water Inj 50 Ml Syringe IV 08/08/24 17:50 Q15MIN PRN BG 50-70 responsive npo pt Dextrose 50 ml 07/09/24 17:51 Dextrose 50%-Water Inj 50 Ml Syringe IV 08/08/24 17:50 Q15MIN PRN BG <50 OR BG <70 & pt unresponsive Glucagon 1 mg 07/09/24 17:51 Glucagon Inj 1 Mg Vial IM Q15MIN PRN BG <70, and no IV access Heparin Sodium (Porcine) 5,000 unit 07/09/24 21:00 07/09/24 22:03 Heparin Sod Inj 5000 Unit/Ml Vial SC 07/23/24 20:59 Not Given BID ASIA Azithromycin 500 mg/ Sodium 250 mls @ 250 mls/hr 07/10/24 21:00 Chloride IV 07/16/24 17:49 QDAY@2100 ASIA Ceftriaxone Sodium/Dextrose 1 gm in 50 mls @ 100 mls/hr 07/09/24 18:15 07/10/24 08:35 Rocephin/D5w 1gm Iv Premix IV 07/16/24 18:14 100 mls/hr QDAY ASIA Administration Insulin Human Lispro 0 unit 07/10/24 07:30 07/10/24 07:35 Insulin Lispro (Admelog) 1 Unit/0.01 Ml Unit SC 08/09/24 07:29 Not Given AC ASIA Protocol Levothyroxine Sodium 50 mcg 07/10/24 09:00 07/10/24 08:34 Levothyroxine Sodium 25 Mcg Tablet PO 08/09/24 08:59 50 mcg ACBR ASIA Administration Ondansetron HCl 4 mg 07/09/24 17:51 Ondansetron Inj 2 Mg/Ml Inj 2 Ml IV 08/08/24 17:50 Q6H PRN NAUSEA OR VOMITING Protocol Pantoprazole Sodium 40 mg 07/10/24 09:00 07/10/24 08:34 Pantoprazole 40 Mg Tablet PO 08/09/24 08:59 40 mg QDAY ASIA Administration Plan Florentino Can is a 79-year-old male with a past medical history of type 2 diabetes mellitus, hypertension, and atrial fibrillation (patient states he is on warfarin) who presents to ED on 07/09 after being brought in by [place] [employer] for erratic driving, and son present at bedside to help provide additional history. Son states that patient went out to buy something from convenience store and on the way back home onlookers called police for patient's driving. Police then called EMS and son states that patient's blood pressure was high. For the past 2 to 3 days patient endorses having a cough with associated fever, chills, and sweats but no sore throat or shortness of breath. Also denies chest discomfort, dysuria, change in bowel habits, or abdominal pain. No sick contacts but patient did drive from [place] to visit his son. Admitted for management of community acquired pneumonia. #Community-acquired pneumonia #Elevated lactate Presents with cough, fever, chills, sweats. No shortness of breath, sore throat, sick contacts. WBC 30, lactate 2.1, Pro-Eber 33. CXR showed right base pneumonia. RSV, flu, and COVID negative. ? Azithromycin and ceftriaxone (07/09-) ? Blood culture 07/09: pend ? Sputum culture 07/09: pend #Acute versus chronic kidney injury, improving #Mild hyponatremia Cr 2.5, no previous records so cannot determine if MINAL versus CKD ? Currently on diet, will continue to monitor ? Avoid nephrotoxic agents, renally dose medications #Hyperbilirubinemia, improving #Transaminitis, resolved Denies abdominal pain and also denies alcohol consumption. ? Continue to monitor #Atrial fibrillation ? Metoprolol succinate 25 mg PO daily ? Warfarin 2.5 mg PO tablet ? Take half tablet if INR > 3 ? Take full tablet if INR < 2 #Hypertension Holding home HCTZ and losartan in setting of MINAL vs CKD #Type 2 diabetes mellitus, A1c 7.5% Holding home Jardiance in setting of MINAL vs CKD ? SSI ? Hypoglycemia protocol #BPH ? Tamsulosin 0.4 mg PO daily #Hypothyroidism ? Levothyroxine 50 mcg PO ACBR #Gout Holding home allopurinol 100 mg PO BID in setting of MINAL vs CKD Hospital management: Disposition: Management of community-acquired pneumonia, on IV antibiotics, pending cultures Fluids: 500 mL LR Diet: Cardiac Lines: PIV DVT prophylaxis: Heparin SC BID GI prophylaxis: Pantoprazole p.o. daily Santiago: Not indicated CODE STATUS: full code ----- Plan discussed with attending physician Dr. Gayatri Vann MD PGY-1 Internal Medicine Attending Provider Attestation/Addendum Face to face evaluation was performed by me. I have personally seen and examined the patient. I discussed the assessment and plan with the entire medicine team. I reviewed available medical records, imaging studies, laboratory results. I agree with the above subjective data, objective findings, assessment and plan except as corrected by me or noted below Left lower lobe pneumonia, suspect bacterial gram-positive cocci Acute febrile illness due to above History of atrial fibrillation with controlled ventricular rate Systemic anticoagulation with warfarin Supratherapeutic INR - Continue with empiric antibiotics as ordered, Coumadin being held due to INR above 3. Patient is self monitoring and adjusting the dosage of Coumadin if below 2 gets full tablet, if 2?3 gets half tablet, if above 3 skip that day. Continue to monitor clinical course closely-- More than > 30 minutes spent on the encounter
[2024-07-10 09:59] LABS: Lactate (Lactic Acid) 1.3 mMol/L (0.4-2.0)
--- NOTE | 2024-07-10 12:39 | PC.NURSE ---
I was in room 273 translating for Robbie when we heard a loud bang. Patients table slid and patients tray ended up on the floor. I notified charge nurse and patient reassured us he did not fall. Ayush did an assessment and patient was okay. Will continue to monitor patient.
[2024-07-10] MEDS: TAMSULOSIN HCL 0.4 MG CAPSULE PO (14:37)
--- NOTE | 2024-07-10 15:15 | PC.SS ---
COMMUNITY ACTION WORKER conducted bedside contact with the patient conduct initial assessment and to discuss discharge planning.? Patient confirmed demographic information.? Patient resides in [place], [place]; with spouse and daughter.? Patient visiting son in [place] upon current admission.? 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 Patient does not utilize any form of DME to assist with ambulation.? Patient does not utilize home oxygen.? Patient describes the ability to complete ADL?s independently.? Patient identified son, Dania Can ; as surrogate medical decision maker.? Patient confirmed alignment with PCP services in [place], [place].? Patient does not participate with dialysis.? Patient does not possess any specialty providers.? Plan is for the patient to return home at the time of discharge.? Patient?s son will provide transportation on behalf of the patient. No discharge needs identified by the patient.? No further intervention required at this time, social services designee will be available to address any further concerns.? Next of Kin: Dania Pamella D/C Plan: Home
--- NOTE | 2024-07-10 15:46 | PC.SS ---
Rounding Note: Plan is to d/c the patient home tomorrow.
[2024-07-10] MEDS: METOPROLOL SUCCINATE XL 25 MG TABCR PO (15:57)
--- NOTE | 2024-07-10 16:47 | PC.PT ---
Patient is safe to ambulate to the bathroom with 1 staff assist and no DME for safety due to patient can be impulsive. RN made aware.
[2024-07-10] MEDS: INSULIN LISPRO (AdmeLOG) 1 UNIT/0.01 ML UNIT SC (16:53)
[2024-07-10] MEDS: AZITHROMYCIN INJ 500 MG in SODIUM CHLORIDE 0.9% 250 ML 250 ML 250 MG IV (20:34)
[2024-07-11] VITALS (8 sets, daily range): BP systolic 140–157; BP diastolic 79–95; PULSE 77–96; RESP 16–23; TEMP 36.1–36.3; O2SAT 95–98; BMI 21.1
[2024-07-11] MEDS: LEVOTHYROXINE SODIUM 25 MCG TABLET 50 MCG PO (05:16)
[2024-07-11 05:38] LABS: Basophils % (Auto) 0 % (0-2.5); Eosinophils % (Auto) 0 % (0-10); Hematocrit 31.4 % (41.0-53.0); Hemoglobin 10.8 g/dL (13.5-16.0); Immature Granulocytes % (Auto) 1 % (0-0); Lymphocytes # (Auto) 0.9 Thou/mm3 (1.0-4.8); Lymphocytes % (Auto) 6 % (10-50); Mean Corpuscular HGB Conc 34.4 g/dl (31.0-37.0); Mean Corpuscular Hemoglobin 34.2 pg (25.0-35.0); Mean Corpuscular Volume 99 fL (80-100); Monocytes # (Auto) 0.7 Thou/mm3 (0.0-0.8); Monocytes % (Auto) 4 % (0-12); Neutrophils # (Auto) 14.3 Thou/mm3 (1.8-7.7); Neutrophils % (Auto) 89 % (37-80); Nucleated Red Blood Cell % 0 /100 WBC (0); Platelet Count 99 Thou/mm3 (140-440); RDW Standard Deviation 53.1 fL (35.1-43.9); Red Blood Count 3.16 Miln/mm3 (4.50-5.90)
[2024-07-11 06:11] LABS: Partial Thromboplastin Time 59.8 Seconds (22.0-36.0)
[2024-07-11 06:12] LABS: Prothrombin Time 30.3 Seconds (9.0-12.2)
[2024-07-11 06:14] LABS: Alanine Aminotransferase 12 U/L (10-49); Albumin, Serum 3.5 gm/dL (3.4-4.8); Albumin/Globulin Ratio 1.1 (1.2-2.2); Alkaline Phosphatase 72 U/L (46-116); Anion Gap 11 (7-16); Aspartate Amino Transferase 27 U/L (0-34); BUN/Creatinine Ratio 22 Ratio (12-20); Bilirubin,Total 1.2 mg/dL (0.3-1.2); Blood Urea Nitrogen 41 mg/dL (9-23); Calcium 8.7 mg/dL (8.3-10.6); Calcium (Corrected) 9.1 mg/dL (8.5-10.1); Carbon Dioxide 20.7 mMol/L (20.0-31.0); Chloride 106 mMol/L (98-107); Creatinine (Component) 1.9 mg/dL (0.6-1.3); Estimated Creatinine Clearance 25.5 mL/min (>60); Globulin 3.1 gm/dL (2.3-3.5); Glucose 75 mg/dL (74-106); Magnesium 2.2 mg/dL (1.6-2.6); Osmolality,Calculated 284 (275-295); Phosphorous 2.9 mg/dL (2.4-5.1); Potassium 3.2 mMol/L (3.4-5.1); Sodium 138 mMol/L (136-145); Total Protein 6.6 gm/dL (5.7-8.2); eGFR 36 See Note
--- NOTE | 2024-07-11 06:19 | PC.NURSE ---
Dr. Mosher made aware of critically high PT of 30.3.
[2024-07-11] MEDS: TAMSULOSIN HCL 0.4 MG CAPSULE PO (09:05)
[2024-07-11] MEDS: METOPROLOL SUCCINATE XL 25 MG TABCR PO (09:05)
[2024-07-11] MEDS: ATORVASTATIN CALCIUM 10 MG TABLET PO (09:05)
[2024-07-11] MEDS: PANTOPRAZOLE 40 MG TABLET PO (09:05)
[2024-07-11] MEDS: cefTRIAXone/D5w 1gm IV premix 1 GM/50 ML BAG IV (09:08)
--- NOTE | 2024-07-11 10:40 | CHAP ---
Patient was visited by the Spiritual Care Volunteer who prayed for them. (Volunteer was in the hospital from 09:15-10:40).
--- NOTE | 2024-07-11 10:44 | PD.RESDS ---
Planned Discharge Date 07/11/24 DS: Providers Provider Date of admission: 07/09/24 18:04 Primary care physician: Physician No Primary/Family Admitting Provider: Lobo Almeida MD Attending Provider on Admission: Sven Mendieta MD Consults: 07/10/24 09:05 Referral Physical Therapy Routine Comment: Physician Instructions: Attending Provider on DC: Prasad Vann MD Discharging Provider: Prasad Vann MD DS: Diagnosis Problem List Completed Was Problem List Reviewed/Reconciled?: Yes Hospital Course Hospital Course Hospital course: Florentino Can is a 79-year-old male with a past medical history of type 2 diabetes mellitus, hypertension, hypothyroidism, BPH, gout, and atrial fibrillation (patient states he is on warfarin) who presents to ED on 07/09 after being brought in by [facility] for erratic driving, and son present at bedside to help provide additional history. Son states that patient went out to buy something from convenience store and on the way back home onlookers called police for patient's driving. Police then called EMS and son states that patient's blood pressure was high. For the past 2 to 3 days patient endorses having a cough with associated fever, chills, and sweats but no sore throat or shortness of breath. Also denies chest discomfort, dysuria, change in bowel habits, or abdominal pain. No sick contacts but patient did drive from [place] to visit his son. Admitted for management of community acquired pneumonia. Throughout hospital course no acute events occurred. Patient did not require any supplemental oxygen, and remained without fever for 24 hours on day of discharge. WBC improved from 30 on day of admission to 16 on day of discharge. Continues to have cough and chills but no shortness of breath, sore throat. Started on azithromycin and ceftriaxone, and cultures did not show growth at time of discharge. Will transition to cefdinir 300 mg p.o. twice daily for another 3 days to complete antibiotic course. Renal function improved as well from 2.5 on admission to 1.9 on discharge. Regarding atrial fibrillation and warfarin, INR remains above 3 and warfarin was held per patient's regimen. Platelets decreased from 121 to 99 and recommend to obtain CBC outpatient within 1 week of discharge. Diagnoses during admission: #Community-acquired pneumonia #Elevated lactate #Acute versus chronic kidney injury, improving #Mild hyponatremia #Hyperbilirubinemia, improving #Transaminitis, resolved #Atrial fibrillation #Hypertension #Type 2 diabetes mellitus, A1c 7.5% #BPH #Hypothyroidism #Gout Discharge instructions: - Obtain complete blood count (CBC) within one week of discharge to monitor platelets - Obtain CT of the chest in two months to evaluate for resolution of pneumonia and evaluate underlying mass - Continue cefdinir 300 mg twice daily for three more days to complete antibiotic course - Wafarin has been held during hospital stay as INR has been 3.0 and 3.2 for the last two days - Follow-up with your PCP within 1 week of discharge - Continue taking all other home medications as prescribed - Return to the ED if symptoms worsen/recur ----- Plan discussed with attending physician Dr. Gayatri Vann MD PGY-1 Internal Medicine Time Spent with Patient Time attestation: Total time spent providing and/or coordinating discharge services: Exam Vital Signs Temp Pulse Resp BP Pulse Ox O2 Del Method 97.3 F 96 20 143/80 H 98 Room Air 07/11/24 08:00 07/11/24 09:05 07/11/24 08:00 07/11/24 09:05 07/11/24 08:00 07/11/24 08:00 Narrative Exam General: AOx3, no acute distress, able to speak full sentences HEENT: NC/AT, mucous membranes moist, bilateral sclera anicteric Cardiovascular: irregular rate and rhythm, S1/S2 present, no murmurs appreciated Pulmonary: clear to auscultation bilaterally, no rales/rhonchi/wheezes Abdominal: soft, non-tender, non-distended, no rebound/guarding, normal bowel sounds present Musculoskeletal: normal ROM, no peripheral edema Skin: warm and dry, intact, no rashes Neuro: CN II-XII intact, no focal deficits Discharge Plan Plan Patient Disposition: HOME (Self Care) Patient condition on transfer: Stable Care Plan Goals: - Obtain complete blood count (CBC) within one week of discharge to monitor platelets - Obtain CT of the chest in two months to evaluate for resolution of pneumonia and evaluate underlying mass - Continue cefdinir 300 mg twice daily for three more days to complete antibiotic course - Wafarin has been held during hospital stay as INR has been 3.0 and 3.2 for the last two days - Follow-up with your PCP within 1 week of discharge - Continue taking all other home medications as prescribed - Return to the ED if symptoms worsen/recur Prescriptions/Referrals Prescriptions/Med Rec: New cefdinir 300 mg capsule 300 mg PO BID 3 Days Qty: 6 0RF Continued atorvastatin 10 mg tablet 10 mg PO QDAY allopurinol 100 mg tablet 100 mg PO BID glipizide 5 mg tablet 5 mg PO .COMPLEX Rx Instructions: 5 mg orally take one half tablet by mouth 2 times a day 30 minutes before breakfast and dinner; omeprazole 20 mg capsule,delayed release(DR/EC) 20 mg PO QDAY tamsulosin 0.4 mg capsule 0.4 mg PO QDAY losartan 50 mg tablet 50 mg PO QDAY Jardiance 25 mg tablet 25 mg PO .COMPLEX Rx Instructions: 25 mg orally take one-half tablet by mouth every day levothyroxine 50 mcg tablet 50 mcg PO QDAY Rx Instructions: take one tablet by mouth daily 30 minutes before breakfast and other medications hydrochlorothiazide PO metoprolol succinate PO .Qday warfarin 2.5 mg tablet 2.5 mg PO .COMPLEX Rx Instructions: 2.5 mg orally take by mouth as directed by clinic; Referrals: No Primary/Family,Physician [Primary Care Provider] - Patient/Caregiver Discharge Instructions Education Materials: Preventing Pneumonia, Treating Pneumonia, Sepsis Print Language: Palestinian Stand Alone Forms: [employer] Info., Patient Portal Info Letter Discharge Order Discharge Orders: Discharge (Routine); Ordered 07/11/24 Ordered By: Prasad Vann Quality Discharge Quality Measures VTE prophylaxis Attestestation Attestation Face to face evaluation was performed by me. I have personally seen and examined the patient. I discussed the assessment and plan with the entire medicine team. I reviewed available medical records, imaging studies, laboratory results. I agree with the above subjective data, objective findings, assessment and plan except as corrected by me or noted below Left lower lobe pneumonia, suspect bacterial gram-positive cocci Acute febrile illness due to above History of atrial fibrillation with controlled ventricular rate Systemic anticoagulation with warfarin Supratherapeutic INR - Patient feeling much better, wants to go home. Plan to discharge home with home health, p.o. cefdinir to complete course?3 more days to be prescribed. Patient to continue managing his warfarin/INR and follow-up with PCP and cardiology after discharge. More than 30 minutes spent on the encounter.
[2024-07-11] MEDS: POTASSIUM CHLORIDE 20 mEq TABCR 40 MEQ PO (11:21)
[2024-07-11] MEDS: INSULIN LISPRO (AdmeLOG) 1 UNIT/0.01 ML UNIT SC (11:28)
--- NOTE | 2024-07-11 11:31 | PC.SS ---
Update: Plan is to discharge the patient home today.
--- NOTE | 2024-07-11 13:22 | PC.NURSE ---
Pt and son at bedside for discharge instructions. Educated on fall risk with blood thinner. Pt and son verbalized understanding of follow up appt with primary to recheck cbc and order CT scan. Son and pt both verbalized ready and feel safe discharging home. Due to low platelets, held pressure on IV site for 5 min and put tegaderm on. Educated son and patient to monitor for bleeding and to leave dressing on going home. IV site assessed and bleeding stopped, guaze tegaderm and kerlex wrap applied.
== END 2024-07-11 13:10 | disposition home or self-care (01) | DRG 871 ==
LOC: SERX 17:09 → SERHOLD 18:10 → S2NX 21:29
PROVIDERS: Registered Nurse General Practice; Student in an Organized Health Care Education/Training Program; Admitting Provider Student in an Organized Health Care Education/Training Program; Emergency Provider Family Medicine; Visit Provider Internal Medicine
DX: A41.9 Sepsis, unspecified organism (principal); J18.9 Pneumonia, unspecified organism; N17.9 Acute kidney failure, unspecified; E87.1 Hypo-osmolality and hyponatremia; R17 Unspecified jaundice; E87.20 Acidosis, unspecified; D69.6 Thrombocytopenia, unspecified; E11.65 Type 2 diabetes mellitus with hyperglycemia; I48.91 Unspecified atrial fibrillation; E03.9 Hypothyroidism, unspecified; R79.1 Abnormal coagulation profile; N40.0 Benign prostatic hyperplasia without lower urinary tract symptoms; M10.9 Gout, unspecified; I10 Essential (primary) hypertension; Z79.01 Long term (current) use of anticoagulants; R74.01 Elevation of levels of liver transaminase levels; Z79.84 Long term (current) use of oral hypoglycemic drugs; Z79.890 Hormone replacement therapy; Z79.899 Other long term (current) drug therapy; Z11.52 Encounter for screening for COVID-19
CPT/HCPCS: 36415; 71045; 80053; 80061; 81001; 83036; 83605; 83615; 83690; 83735; 83880; 84100; 84145; 84443; 84484; 85025; 85610; 85730; 87040; 87077; 87081; 87086; 87186; 87205; 87400; 87634; 87811; 93005; 96365; 96367; 97162; 99285; J0131; J0456; J0696; J1815; J7030; J7050; J7120; A9270